=== PATIENT | female | born 1930 | race Caucasian/White ===

== ENCOUNTER → 2021-05-29 | Outpatient (CLI) | payer MEDICARE ==
--- NOTE | 2021-05-29 17:41 | Diagnostic Imaging Report ---
Indication: Right shoulder pain. Time of Exam: 2:14 PM Three views of the right shoulder were obtained. Glenohumeral and acromioclavicular alignment are normal. There is some narrowing of the acromiohumeral space suggestive of chronic rotator cuff arthropathy. No fracture or dislocation is seen. IMPRESSION: Findings suggestive of chronic rotator cuff arthropathy. No acute bony abnormality is detected. Dictated by: Dictated on workstation # [id number]
== END ==
LOC: ORTHO 14:04
PROVIDERS: ATTEND Orthopaedic Surgery
DX: M25.511 Pain in right shoulder (principal)
CPT/HCPCS: 20610; 73030; G0463